=== PATIENT | male | born 1980 | race African-American/Black ===

== ENCOUNTER 2016-04-16 21:58 | Emergency (ER) | payer OTHER ==
[~2016-04-16] VITALS: Ht 177.8 cm; Wt 122.5 kg
[2016-04-17 08:00] VITALS: BP 138/103
== END 2016-04-17 08:39 | disposition home or self-care (01) ==
LOC: ER 22:09
DX: T78.40XA Allergy, unspecified, initial encounter (principal); E11.9 Type 2 diabetes mellitus without complications; E78.5 Hyperlipidemia, unspecified; I10 Essential (primary) hypertension; Z88.0 Allergy status to penicillin
CPT/HCPCS: 82962